=== PATIENT | female | born 2000 | race American Indian/Alaskan Native ===

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

== ENCOUNTER 2018-09-29 02:38 | Emergency (ER) | payer MEDICAID, OTHER ==
[2018-09-29 03:36] LABS: Bilirubin,Urine NEG (Negative); Blood,Urine NEG (Negative); Color,Urine Yellow (Yellow); HCG Qualitative,Urine Positive (Negative); Mucus,Urine 2+ /HPF; Protein,Urine <15 mg/dL mg/dL (Negative); Urobilinogen,Urine < 2.0 mg/dL (<2.0)
[2018-09-29] MEDS ORDERED: TYLENOL PO ONE (04:41)
[2018-09-29 05:13] LABS: Basophils % (Auto) 0.6 % (0.0-1.8); Eosinophils % (Auto) 0.7 % (0.0-4.3); Hematocrit 33.4 % (30.3-42.9); Hemoglobin 11.5 gm/dl (10.1-14.3); Lymphocytes # (Auto) 1.9 K/mm3 (1.2-5.4); Mean Corpuscular HGB Conc 34 % (30-34); Mean Corpuscular Volume 93 fl (79-97); Monocytes # (Auto) 0.4 K/mm3 (0.0-0.8); Monocytes % (Auto) 7.9 % (0.0-7.3); Platelet Count 321 K/mm3 (140-440); Red Blood Count 3.61 M/mm3 (3.65-5.03); Red Cell Distribution Width 13.4 % (13.2-15.2)
[2018-09-29 05:34] LABS: Alanine Aminotransferase 11 units/L (7-56); BUN/Creatinine Ratio 17; Blood Urea Nitrogen 10 mg/dL (7-17); Calcium 9.4 mg/dL (8.4-10.2); Hemolysis Index 11
--- NOTE | 2018-09-29 05:42 | Ultrasound Report ---
US OB <= 14 weeks fetus, US OB transvaginal INDICATION / CLINICAL INFORMATION: ; pelvic pain. COMPARISON: None available. FINDINGS: Transabdominal and transvaginal imaging was performed. Intrauterine gestational sac is noted which measures 8.9 mm (5 weeks, 5 days). Yolk sac is visualized . No pole was identified. Linear and echogenicity is seen within the endometrial cavity, this c ould be a trace amount of endometrial fluid/hemorrhage. 1.5 cm right ovarian cyst is noted. Left ovary was not visualized. There is trace free fluid in the c ul-de-sac. No adnexal lesions. IMPRESSION: 1. Intrauterine gestational sac measures 5 weeks, 5 days. Yolk sac is visualized; however, no p ole is identified. Short-term sonographic follow-up is recommended. 2. Thin hypoechoic linear focus within the endometrial cavity could be a small amount of endometrial fluid/hemorrhage. Signer Name: Rio Walsh MD Signed: 09/29/2018 5:37 AM Workstation Name: [id number]
--- NOTE | 2018-09-29 05:53 | Emergency Department Report ---
ED Female HPI - General Chief complaint: Urogenital-Female Stated complaint: VAGINAL IRRITATION/ LEON SWOLLEN Time Seen by Provider: 09/29/18 04:00 Source: patient Mode of arrival: Ambulatory Limitations: No Limitations - History of Present Illness Initial comments: Patient is A0 18-year-old [place] female with no past medical history was approximately 5 weeks gestation who presents to the ED with a complaint of vaginal itching, swelling and suprapubic pain for the last 2 days. Patient states that she just found out that she was about 2 days ago. Patient denies vaginal bleeding, nausea, vomiting, diarrhea, fever, chills, dizziness, headache, urinary frequency and urgency, dysuria, chest pain or shortness of breath and cough. MD Complaint: pelvic pain, other (vaginal pain and itching) -: Sudden, days(s) (2) Location: suprapubic Radiation: non-radiating Severity: moderate Severity scale (0 -10): 4 Quality: cramping, sharp, dull Consistency: intermittent Improves with: none Worsens with: none Are you Now?: Yes (YES) Last Menstrual Period: 08/21/18 EDC: 05/28/19 Associated Symptoms: denies other symptoms, abdominal pain. denies: vaginal discharge, vaginal bleeding, nausea/vomiting, fever/chills, headaches, loss of appetite, dysuria, hematuria, shortness of breath, syncope - Related Data Sexually active: Yes : 1 Para: 0 A: 0 Previous Rx's Medication Instructions Recorded Last Taken Type Clindamycin [Clindamycin CAP] 300 mg PO Q8H #21 cap 06/14/18 Unknown Rx Ibuprofen [Motrin] 600 mg PO Q8H PRN #20 tablet 06/14/18 Unknown Rx Acetaminophen [Tylenol] 500 mg PO Q6HR PRN #20 tablet 09/29/18 Unknown Rx Allergies Allergy/AdvReac Type Severity Reaction Status Date / Time No Known Allergies Allergy Verified 10/28/17 05:59 ED Review of Systems ROS: Stated complaint: VAGINAL IRRITATION/ LEON SWOLLEN Other details as noted in HPI Constitutional: denies: chills, fever Eyes: denies: eye pain, eye discharge, vision change ENT: denies: ear pain, throat pain Respiratory: denies: cough, shortness of breath, wheezing Cardiovascular: denies: chest pain, palpitations Endocrine: no symptoms reported Gastrointestinal: abdominal pain (suprapubic). denies: nausea, vomiting, diarrhea, constipation, hematemesis Genitourinary: other (pelvic pain). denies: urgency, dysuria, discharge Musculoskeletal: denies: back pain, joint swelling, arthralgia Skin: denies: rash, lesions Neurological: denies: headache, weakness, paresthesias Psychiatric: denies: anxiety, depression Hematological/Lymphatic: denies: easy bleeding, easy bruising ED Past Medical Hx - Past Medical History Previous Medical History?: No - Surgical History Past Surgical History?: No - Social History Smoking Status: Current Some Day Smoker Substance Use Type: None - Medications Home Medications: Home Medications Medication Instructions Recorded Confirmed Last Taken Type Clindamycin [Clindamycin CAP] 300 mg PO Q8H #21 cap 06/14/18 Unknown Rx Ibuprofen [Motrin] 600 mg PO Q8H PRN #20 tablet 06/14/18 Unknown Rx Acetaminophen [Tylenol] 500 mg PO Q6HR PRN #20 tablet 09/29/18 Unknown Rx ED Physical Exam - General Limitations: No Limitations General appearance: alert, in no apparent distress - Head Head exam: Present: atraumatic, normocephalic, normal inspection - Eye Eye exam: Present: normal appearance, PERRL, EOMI. Absent: scleral icterus, conjunctival injection, nystagmus - ENT ENT exam: Present: normal exam, normal orophraynx, mucous membranes moist, TM's normal bilaterally, normal external ear exam - Neck Neck exam: Present: normal inspection, full ROM. Absent: tenderness - Respiratory Respiratory exam: Present: normal lung sounds bilaterally. Absent: respiratory distress, wheezes, rales, stridor, chest wall tenderness, accessory muscle use - Cardiovascular Cardiovascular Exam: Present: regular rate, normal rhythm, normal heart sounds. Absent: systolic murmur, diastolic murmur, rubs, gallop - GI/Abdominal GI/Abdominal exam: Present: soft, tenderness (suprapubic, mild), normal bowel sounds. Absent: guarding, rebound, hyperactive bowel sounds, hypoactive bowel sounds, mass - Rectal Rectal exam: Present: deferred - External exam: Present: normal external exam Speculum exam: Present: normal speculum exam. Absent: vaginal discharge, cervical discharge, vaginal bleeding Bi-manual exam: Present: normal bi-manual exam. Absent: cervical motion tendernes, adnexal tenderness, uterine enlargement, uterine tenderness - Extremities Exam Extremities exam: Present: normal inspection, full ROM, normal capillary refill - Back Exam Back exam: Present: normal inspection, full ROM, CVA tenderness (L). Absent: tenderness, muscle spasm, paraspinal tenderness - Neurological Exam Neurological exam: Present: alert, oriented X3, CN II-XII intact, normal gait, reflexes normal - Psychiatric Psychiatric exam: Present: normal affect, normal mood - Skin Skin exam: Present: warm, dry, intact, normal color. Absent: rash ED Course Vital Signs 09/29/18 09/29/18 02:42 05:46 Temperature 99.2 F Pulse Rate 92 H Respiratory 18 16 Rate Blood Pressure 124/72 O2 Sat by Pulse 99 Oximetry - Reevaluation(s) Reevaluation #1: 09/29/18 06:05 Patient is alert and oriented 3 and is not in distress with normal vital signs. Lab test results were reviewed and are unremarkable, and this is a Quant is 3959.0 and transvaginal ultrasound shows an IUP which measures 5 weeks and 5 day s. The yolk sac is visualized however there is no pole. This may be due to the . There is however a pain type with colic linear focus within the endometrial cavity which could be a small amount of endometrial fluid or hemorrhage. The radiologist recommended short-term sonographic follow-up. Patient was treated for pain in the ED and on reevaluation, the patient's pain is well controlled. Patient will discharged home and advised to maintain a complete pelvic rest and to follow-up with the MED CARE MANAGER physician Dr. Encarnacion in 5-7 days for reevaluation. Patient was advised to return to the ED immediately if symptoms get worse. 09/29/18 06:05 ED Medical Decision Making - Lab Data Result diagrams: 09/29/18 04:50 09/29/18 04:50 - Radiology Data Radiology results: report reviewed, image reviewed transvaginal ultrasound shows an IUP which measures 5 weeks and 5 days. The yolk sac is visualized however there is no pole. This may be due to the . There is however a thin hypoechoic linear focus within the endometrial cavity which could be a small amount of endometrial fluid or hemorrhage. The radiologist recommended short-term sonographic follow-up - Medical Decision Making Patient is alert and oriented 3 and is not in distress with normal vital signs. Lab test results were reviewed and are unremarkable, and this is a Quant is 3959.0 and transvaginal ultrasound shows an IUP which measures 5 weeks and 5 days. The yolk sac is visualized however there is no pole. This may be due to the . There is however a thin hypoechoic linear focus within the endometrial cavity which could be a small amount of endometrial fluid or hemorrhage. The radiologist recommended short-term sonographic follow-up. Russell diaz was treated for pain in the ED and on reevaluation, the patient's pain is well controlled. Patient will discharged home and advised to maintain a complete pelvic rest and to follow-up with the MED CARE MANAGER physician Dr. Encarnacion in 5-7 days for reevaluation. Patient was advised to return to the ED immediately if symptoms get worse. - Differential Diagnosis Abdominal pain in ; Acute UTI, Acute PID Critical care attestation.: If time is entered above; I have spent that time in minutes in the direct care of this critically ill patient, excluding procedure time. ED Disposition Clinical Impression: at early stage Abdominal pain during Qualifiers: Trimester: first trimester Qualified Code(s): O26.891 - Other specified related conditions, first trimester; R10.9 - Unspecified abdominal pain Disposition: TO HOME OR SELFCARE Is pt being admited?: No Does the pt Need Aspirin: No Condition: Stable Instructions: (ED), Abdominal Pain in (ED) Additional Instructions: Maintain a complete pelvic rest, follow-up with the MED CARE MANAGER physician or with Dr. Encarnacion the MED CARE MANAGER physician environmental health safety manager in 5-7 days for reevaluation. Return to the ED immediately if symptoms get worse. Take Tylenol as needed for pain Prescriptions: Acetaminophen [Tylenol] 500 mg PO Q6HR PRN #20 tablet PRN Reason: Pain , Severe (7-10) Referrals: SERENITY ENCARNACION MD [Staff Physician] - 3-5 Days Time of Disposition: 05:49 Print Language: HONDURAN
[2018-09-29 06:14] VITALS: BP 119/67
== END 2018-09-29 06:13 | disposition home or self-care (01) ==
LOC: ED 02:38
DX: O26.891 Other specified pregnancy related conditions, first trimester (principal); R10.2 Pelvic and perineal pain; Z3A.01 Less than 8 weeks gestation of pregnancy
CPT/HCPCS: 36415; 76801; 76817; 80053; 81001; 81025; 84702; 85025